=== PATIENT | female | born 1955 | race Caucasian/White ===

== ENCOUNTER 2017-05-30 18:23 | Emergency (ER) | payer MEDICARE ==
[~2017-05-30] VITALS: Ht 165.1 cm; Wt 96.0 kg
[~2017-05-30 18:23] MED LIST: LEVOTHYROXINE75 MCG PO; MIRTAZAPINE15 M1 PO; OXYBUTYNIN; PRAVASTATIN SOD20 MG PO; VICOPROFEN PO
[2017-05-30 19:28] LABS: URINE BILIRUBIN - DIPSTICK NEGATIVE (NEGATIVE); URINE BLOOD DIPSTICK LARGE (NEGATIVE); URINE COLOR YELLOW; URINE GLUCOSE - DIPSTICK NEGATIVE (NEGATIVE); URINE KETONE TRACE mg/dL (NEGATIVE); URINE LEUK ESTERASE NEGATIVE (NEGATIVE); URINE NITRITE - DIPSTICK NEGATIVE (Negative); URINE PROTEIN - DIPSTICK TRACE mg/dL (NEG-TRACE); URINE SPECIFIC GRAVITY >=1.030; URINE UROBILINOGEN - DIPSTICK 0.2 E.U./dL (0.2)
[2017-05-30 19:29] LABS: URINE CLARITY CLEAR
[2017-05-30 19:47] LABS: HEMATOCRIT 44.5 % (37.0-47.0); HEMOGLOBIN 15.4 g/dl (12.0-16.0); IMMATURE GRANULOCYTES 0.4 % (0.0-1.0); MEAN CELL VOLUME 89.4 fL CALC (80.0-100.0); MEAN CORPUSCULAR HGB 30.9 pG CALC (26.0-32.0); MEAN CORPUSCULAR HGB CONC 34.6 g/L CALC (32.0-36.0); NEUT# 15.25 thou/uL (2.00-7.15); RED BLOOD COUNT 4.98 mill/uL (4.20-5.60); RED CELL DISTRI WIDTH 13.2 % (11.5-15.5)
[2017-05-30 20:06] LABS: URINE RBC TNTC RBC/hpf (0-5); URINE SQUAMOUS EPITHELIAL CELL FEW EPI/hpf (0-FEW)
[2017-05-30] MEDS ORDERED: OXYBUTYNIN5 M1 PO (20:32)
[2017-05-30 20:50] LABS: ALBUMIN 4.3 g/dL (3.2-5.0); ALKALINE PHOSPHATASE 105 u/l (38-126); AMYLASE 30 u/l (30-110); ANION GAP 17 (6-22 (CALC)); BILIRUBIN, TOTAL 0.5 mg/dL (0.0-1.4); BUN 11 mg/dL (7-17); BUN/CREATININE RATIO 13 (12-20 (CALC)); CARBON DIOXIDE 22 mmol/l (22-30); CHLORIDE 107 mmol/l (95-108); CREATININE 0.8 mg/dL (0.5-1.0); GFR > 60 ML/MIN (>=60 (CALC)); GFR FOR AFR.AMER. > 60 ML/MIN (>=60 (CALC)); LIPASE 29 u/l (23-300); POTASSIUM 4.5 mmol/l (3.5-5.1); SGOT/AST 25 u/l (14-36); SGPT/ALT 24 u/l (9-52); SODIUM 141 mmol/l (137-146); TOTAL PROTEIN 6.9 g/dL (6.3-8.2)
[2017-05-30] MEDS ORDERED: LORTAB 1010 MG PO (22:41)
[2017-05-30] MEDS ORDERED: CIPROFLOXACN500 MG PO (22:41)
[2017-05-30 23:20] VITALS: BP 104/78
== END 2017-05-30 23:20 | disposition home or self-care (01) ==
LOC: ED 18:23
PROVIDERS: Emergency Medicine
DX: N13.6 Pyonephrosis (principal); R91.8 Other nonspecific abnormal finding of lung field; R10.31 Right lower quadrant pain; R10.9 Unspecified abdominal pain; F17.290 Nicotine dependence, other tobacco product, uncomplicated; R11.2 Nausea with vomiting, unspecified
CPT/HCPCS: Q9967

== ENCOUNTER 2019-08-22 16:18 | Observation (INO) | payer MEDICARE ==
[~2019-08-22] VITALS: Ht 165.1 cm; Wt 124.0 kg
[~2019-08-22 16:18] MED LIST changes: +CIPROFLOXACN500 MG PO; +LORTAB 1010 MG PO; +OXYBUTYNIN5 M1 PO
[2019-08-22] MEDS ORDERED: BREO ELLIPTA 101 INH IN (16:53)
[2019-08-22 18:12] LABS: GFR > 60 ML/MIN (>=60 (CALC)); GFR FOR AFR.AMER. > 60 ML/MIN (>=60 (CALC))
[2019-08-22 18:19] LABS: HEMATOCRIT 43.3 % (37.0-47.0); HEMOGLOBIN 13.8 g/dl (12.0-16.0); IMMATURE GRANULOCYTES 0.7 % (0.0-5.0); MEAN CELL VOLUME 88.2 fL CALC (80.0-100.0); MEAN CORPUSCULAR HGB 28.1 pG CALC (26.0-32.0); MEAN CORPUSCULAR HGB CONC 31.9 g/dL CAL (32.0-36.0); NEUT# 11.11 thou/uL (2.00-7.15); RED BLOOD COUNT 4.91 mill/uL (4.20-5.60); RED CELL DISTRI WIDTH 14.4 % (11.5-15.5)
[2019-08-22 18:23] LABS: ETHYL ALCOHOL 0 mg/dl (0-30); LIPASE 25 u/l (23-300)
[2019-08-22 18:29] LABS: ALKALINE PHOSPHATASE 116 u/l (38-126); ANION GAP 13 (6-22 (CALC)); BILIRUBIN, TOTAL 0.6 mg/dL (0.0-1.4); BUN 11 mg/dL (8-23); BUN/CREATININE RATIO 20 (12-20 (CALC)); CARBON DIOXIDE 22 mmol/l (22-30); CHLORIDE 107 mmol/l (95-108); CREATININE 0.6 mg/dL (0.5-1.0); GFR > 60 ML/MIN (>=60 (CALC)); GFR FOR AFR.AMER. > 60 ML/MIN (>=60 (CALC)); SGOT/AST 46 u/l (9-36); SODIUM 139 mmol/l (137-146)
[2019-08-22 18:36] LABS: MYOGLOBIN 136 ng/mL (0 - 62)
[2019-08-22 18:54] LABS: TSH, 3RD GENERATION 1.47 uIU/mL (0.47 - 4.68)
[2019-08-22 21:16] VITALS: BP 115/68
[2019-08-23 00:30] VITALS: BP 122/71
[2019-08-23 04:38] VITALS: BP 108/75
[2019-08-23 05:32] LABS: HEMATOCRIT 41.8 % (37.0-47.0); HEMOGLOBIN 13.4 g/dl (12.0-16.0); IMMATURE GRANULOCYTES 0.4 % (0.0-5.0); MEAN CELL VOLUME 87.8 fL CALC (80.0-100.0); MEAN CORPUSCULAR HGB 28.2 pG CALC (26.0-32.0); MEAN CORPUSCULAR HGB CONC 32.1 g/dL CAL (32.0-36.0); NEUT# 7.8 thou/uL (2.00-7.15); RED BLOOD COUNT 4.76 mill/uL (4.20-5.60); RED CELL DISTRI WIDTH 14.5 % (11.5-15.5)
[2019-08-23 06:01] LABS: ANION GAP 11 (6-22 (CALC)); BUN 9 mg/dL (8-23); BUN/CREATININE RATIO 18 (12-20 (CALC)); CARBON DIOXIDE 21 mmol/l (22-30); CHLORIDE 109 mmol/l (95-108); CREATININE 0.5 mg/dL (0.5-1.0); GFR > 60 ML/MIN (>=60 (CALC)); GFR FOR AFR.AMER. > 60 ML/MIN (>=60 (CALC)); SODIUM 137 mmol/l (137-146)
[2019-08-23 12:01] LABS: URINE BILIRUBIN - DIPSTICK NEGATIVE (NEGATIVE); URINE BLOOD DIPSTICK TRACE-INTACT (NEGATIVE); URINE COLOR YELLOW; URINE GLUCOSE - DIPSTICK NEGATIVE (NEGATIVE); URINE KETONE NEGATIVE (NEGATIVE); URINE NITRITE - DIPSTICK NEGATIVE (Negative); URINE PROTEIN - DIPSTICK NEGATIVE (NEG-TRACE); URINE UROBILINOGEN - DIPSTICK 0.2 E.U./dL (0.2)
[2019-08-23 12:02] LABS: URINE LEUK ESTERASE MODERATE (NEGATIVE)
[2019-08-23 12:06] LABS: BARBITURATES NEGATIVE (NEGATIVE); COCAINE NEGATIVE (NEGATIVE); METHADONE NEGATIVE (NEGATIVE); OXCYCODONE NEGATIVE (NEGATIVE); TETRAHYDROCANNABIONOL NEGATIVE (NEGATIVE); TRICYLIC ANTIDEPRESSANTS NEGATIVE (NEGATIVE)
[2019-08-23 15:41] VITALS: BP 128/79
[2019-08-23] MEDS ORDERED: CIPROFLOXACN500 MG PO (16:16)
[2019-11-16] MEDS ORDERED: MOTRIN400 MG PO (07:29)
[2019-11-16] MEDS ORDERED: FLUCONAZOLE150 MG PO (07:29)
[2019-11-16] MEDS ORDERED: VENTOLIN H108 MCG/AC IN (07:30)
[2019-12-06] MEDS ORDERED: ALEVE220 M1 PO (10:48)
== END 2019-08-23 16:43 | disposition home or self-care (01) ==
LOC: ED 16:18 → ED-I 18:40 → ED 18:54 → ED-I 18:55 → MS2 18:55
PROVIDERS: ADMIT Internal Medicine; ATTEND Internal Medicine
DX: G45.9 Transient cerebral ischemic attack, unspecified (principal); N39.0 Urinary tract infection, site not specified; J44.9 Chronic obstructive pulmonary disease, unspecified; E03.9 Hypothyroidism, unspecified; F17.200 Nicotine dependence, unspecified, uncomplicated; Z11.59 Encounter for screening for other viral diseases
CPT/HCPCS: G0378; Q9967

== ENCOUNTER 2019-12-13 09:31 | Day surgery (SDC) | payer MEDICARE ==
[~2019-12-13] VITALS: Ht 165.1 cm; Wt 122.5 kg
[~2019-12-13 09:31] MED LIST changes: +ALEVE220 M1 PO; +BREO ELLIPTA 101 INH IN; +FLUCONAZOLE150 MG PO; +MOTRIN400 MG PO; +VENTOLIN H108 MCG/AC IN
[2019-12-13 12:21] VITALS: BP 102/67
== END 2019-12-13 12:34 | disposition home or self-care (01) ==
LOC: ENDO 09:31
PROVIDERS: ATTEND Surgery
PROC: 0DBK8ZX Excision of Ascending Colon, Via Natural or Artificial Opening Endoscopic, Diagnostic (ICD-10-PCS; principal; 2019-12-13)
PROC: 0DBL8ZX Excision of Transverse Colon, Via Natural or Artificial Opening Endoscopic, Diagnostic (ICD-10-PCS; 2019-12-13)
PROC: 0DBN8ZX Excision of Sigmoid Colon, Via Natural or Artificial Opening Endoscopic, Diagnostic (ICD-10-PCS; 2019-12-13)
PROC: 0DBH8ZX Excision of Cecum, Via Natural or Artificial Opening Endoscopic, Diagnostic (ICD-10-PCS; 2019-12-13)
DX: D12.2 Benign neoplasm of ascending colon (principal); D12.5 Benign neoplasm of sigmoid colon; D12.3 Benign neoplasm of transverse colon; K63.5 Polyp of colon; K64.8 Other hemorrhoids; E03.9 Hypothyroidism, unspecified; J44.9 Chronic obstructive pulmonary disease, unspecified; Z85.118 Personal history of other malignant neoplasm of bronchus and lung; Z20.828 Contact with and (suspected) exposure to other viral communicable diseases